=== PATIENT | female | born 1980 | race Caucasian/White ===

== ENCOUNTER 2018-12-27 14:40 | Emergency (ER) | payer OTHER ==
[2018-12-27 15:03] VITALS: RESP 16; TEMP 97.6
[2018-12-27] MEDS ORDERED: SODIUM CHLORIDE 0.9% 1000ML 1,000 ML IV ONE (15:57)
[2018-12-27] MEDS ORDERED: KETOROLAC TROMETHAMINE 30 MG/ML SOL IV ONE (15:58)
[2018-12-27] MEDS ORDERED: ONDANSETRON HCL 4 MG/2 ML SOL IV ONE (15:59)
[2018-12-27] MEDS ORDERED: KETOROLAC TROMETHAMINE 30 MG/ML SOL ONE (16:01)
[2018-12-27] MEDS ORDERED: ONDANSETRON HCL 4 MG/2 ML SOL ONE (16:03)
[2018-12-27 16:13] VITALS: BP 109/78; PULSE 62; O2SAT 98
[2018-12-27 17:21] LABS: APPEARANCE,URINE Slightly Cloudy; BILIRUBIN,URINE NEGATIVE (NEGATIVE); COLOR,URINE Yellow; GLUCOSE, URINE (UA) NEGATIVE (NEGATIVE); KETONES,URINE 1+ (NEGATIVE); LEUKOCYTE ESTERASE ,URINE TRACE (NEGATIVE); NITRATE,URINE NEGATIVE (NEGATIVE); OCCULT BLOOD,URINE 1+ (NEG-TRACE); UROBILINOGEN,URINE 0.2 (0.2-1.0 EU)
[2018-12-27 17:33] LABS: BACTERIA NEGATIVE (< 1+); CRYSTALS 1+ AMORPH PHOS (0-3 AVE/HPF); RBC,URINE 0-3 (0-3AV/HPF)
[2018-12-27 17:43] LABS: INFLUENZA A NEGATIVE (NEGATIVE); INFLUENZA B NEGATIVE (NEGATIVE)
[2018-12-27] MEDS ORDERED: CIPROFLOXACIN HCL 500 MG TAB PO ONE (17:58)
[2018-12-27] MEDS ORDERED: CIPROFLOXACIN HCL 500 MG TAB PO SCH (18:00)
== END 2018-12-27 18:29 | disposition home or self-care (01) | DRG 690 ==
LOC: ED 14:40
DX: N39.0 Urinary tract infection, site not specified (principal)
CPT/HCPCS: 81001; 87088; 87804; 96365; 96374; 99283; 99284; J1885; J2405; A9270-GY